=== PATIENT | male | born 1980 | race Caucasian/White ===

== ENCOUNTER 2021-07-15 04:55 | Emergency (ER) | payer BC ==
[2021-07-15] MEDS ORDERED: Sodium Chloride 0.9% 2.5 ML Syringe FLUSH PRN (05:30)
[2021-07-15] MEDS ORDERED: Sodium Chloride 0.9% 10 ML Syringe FLUSH PRN (05:30)
--- NOTE | 2021-07-15 05:36 | EDM.PDOC ---
<Boubacar Rincon - Last Filed: 07/15/21 05:31> ED HPI GENERAL MEDICAL PROBLEM - General Chief Complaint: General Stated Complaint: COVID POSITIVE; TROUBLE BREATHING Time Seen by Provider: 07/15/21 05:29 - History of Present Illness INITIAL COMMENTS - FREE TEXT/NARRATIVE: HISTORY AND PHYSICAL: History of present illness: This is a healthy 40-year-old gentleman with no significant history of hypertension, diabetes, liver, lung, kidney problems who was recently diagnosed with coronavirus on Tuesday (2 days ago )after having symptoms since Tuesday(7 days ago). Patient reports that his diagnosis was made over in the clinic here at [facility]. Patient reports he is had tactile fevers, nausea, yellow productive cough, posttussive emesis, no diarrhea, no dysuria, no frequency/urgency/hematuria. Patient reports he has been tolerating p.o. solids and liquids fairly well but less than usual. Patient denies any abdominal pain. Patient reports chest discomfort with inspiration and cough. Patient reports that he does drink alcohol occasionally. Patient has not had his Covid vaccination as of yet. Patient presents ER today secondary to increasing shortness of breath over the last 24 hours with increased wheezing. Patient denies any calf tenderness. Patient has any history of DVT/PE. After his diagnosis at the clinic, he reports that he was given a prescription for Augmentin, prednisone, Zofran. Review of systems: As per history of present illness and below otherwise all systems reviewed and negative. Past medical history: As per history of present illness and as reviewed below otherwise noncontributory. Surgical history: As per history of present illness and as reviewed below otherwise noncontributory. Social history: No reported history of drug abuse. Family history: As per history of present illness and as reviewed below otherwise noncontributory. Physical exam: This patient was seen and evaluated during the 2019 SARS-CoV-2 novel coronavirus pandemic period. Community viral transmission is ongoing at time of this encounter and the emergency department is operating under pandemic response procedures. Constitutional: Patient is oriented to person, place, and time. Appears well- developed and well-nourished. No distress. HEENT: Moist mucous membranes Head: Normocephalic and atraumatic Eyes: Right eye exhibits no discharge. Left eye exhibits no discharge. No scleral icterus Neck: Normal range of motion. No tracheal deviation present. Cardiovascular: Normal rate and regular rhythm. Pulmonary: Effort normal, no respiratory distress. Abdominal: No distention Musculoskeletal: Normal range of motion Neurologic: Alert and oriented to person, place and time. Skin: [place], warm and dry. Psychiatric: Normal mood and affect. Behavior is normal. Judgment and thought content normal. Nursing note and vital signs have been reviewed Diagnostics: CBC, CMP, troponin, CTA EKG July 15, 2021 5:09 AM EKG: As interpreted by ER physician: Sergey: Nonspecific ST-T wave abnormalities Normal axis No evidence of ST elevation ND Normal sinus rhythm heart rate of 91 Therapeutics: [] Assessment and plan: This is a 40-year-old gentleman with a recent diagnosis of coronavirus after having symptom onset approximately 7 days ago who presents to the ER today secondary to increasing shortness of breath over the last 24 to 48 hours with audible wheezing at home. Patient has not had his coronavirus vaccination as of yet. Patient was started on Augmentin, prednisone and Zofran by his primary care doctor after his diagnosis. Patient has not received Regeneron therapy. Patient's only criteria by our list is a BMI greater than 25, male, no recent vaccination. Patient will have a CBC, CMP, troponin to rule out other causes of shortness of breath. Patient will have a CTA of his chest to rule out PE given his recent history of Covid and his chest pain and shortness of breath. Definitive disposition and diagnosis as appropriate pending reevaluation and review of above. Generalized Pain Score (Numeric/FACES): 8 - Related Data Allergies Allergy/AdvReac Type Severity Reaction Status Date / Time No Known Allergies Allergy Verified 07/15/21 05:28 Home Meds: Home Meds Amoxicillin/Potassium Clav [Amox Tr-K Clv 875-125 mg Tab] 1 each PO ASDIRECTED 07/15/21 [History] Ondansetron [Zofran ODT] 4 mg PO ASDIRECTED 07/15/21 [History] predniSONE [Prednisone] 10 mg PO DAILY 07/15/21 [History] Past Medical History - Past Health History Medical/Surgical History: Denies Medical/Surgical History ED ROS GENERAL - Review of Systems Review Of Systems: See Below ED EXAM, GENERAL - Physical Exam Exam: See Below Departure - Departure Disposition: Home, Self-Care 01 Clinical Impression: Dyspnea, Pneumonia due to COVID-19 virus - Discharge Information Instructions: COVID-19 Frequently Asked Questions, Shortness of Breath, Adult, [id number], COVID-19 Vaccine Information, 10 Things You Can Do to Manage Your COVID-19 Symptoms at Home - [facility] (04/10/2021), COVID-19: Quarantine vs. Isolation - [facility] (09/11/2020), COVID-19: What to Do If You Are Sick- [facility] (12/10/2020) Referrals: PCP,None [Primary Care Provider] - Forms: ED Department Discharge Additional Instructions: It appears you meet some criteria for monoclonal antibody administration. Depending on availability this may be administered in the paperwork has been filled out. The people at the clinic that administer the antibiotic will be in touch with you. If you do not get it this week then you will be over the time limit because if you have symptoms 10days that is the limit on benefit from monoclonal antibodies. [facility] - Primary Care [address] [place] [address] [place] [address] The following information is given to patients seen in the emergency department who are being discharged to home. This information is to outline your options for follow-up care. We provide all patients seen in our emergency department with a follow-up referral. The need for follow-up, as well as the timing and circumstances, are variable depending upon the specifics of your emergency department visit. If you don't have a primary care physician on staff, we will provide you with a referral. We always advise you to contact your personal physician following an emergency department visit to inform them of the circumstance of the visit and for follow-up with them and/or the need for any referrals to a consulting specialist. The emergency department will also refer you to a specialist when appropriate. This referral assures that you have the opportunity for follow-up care with a specialist. All of these measure are taken in an effort to provide you with optimal care, which includes your follow-up. Under all circumstances we always encourage you to contact your private physician who remains a resource for coordinating your care. When calling for follow-up care, please make the office aware that this follow-up is from your recent emergency room visit. If for any reason you are refused follow-up, please contact the [facility] Emergency Department at and asked to speak to the emergency department charge nurse. Sepsis Event Note (ED) - Evaluation Sepsis Screening Result: No Definite Risk <Az Reid - Last Filed: 07/15/21 07:28> Course - Vital Signs Text/Narrative:: 6:32 AM I accepted this patient in signout from my partner at 6 AM. The patient is in no acute distress and went by wheelchair to CT to make sure he does not have a pulmonary embolus. Last Recorded V/S: Last Vital Signs Temp 36.9 C 07/15/21 05:15 Pulse 99 07/15/21 05:15 Resp 18 07/15/21 05:15 BP 121/78 07/15/21 05:15 Pulse Ox 91 L 07/15/21 05:15 - Orders/Labs/Meds Orders: Active Orders 24 hr Category Date Time Status Sodium Chloride 0.9% [Saline Flush] Med 07/15/21 05:30 Active 10 ml FLUSH ASDIRECTED PRN Sodium Chloride 0.9% [Saline Flush] Med 07/15/21 05:30 Active 2.5 ml FLUSH ASDIRECTED PRN Saline Lock Insert [OM.PC] Stat Oth 07/15/21 05:30 Ordered Medication Orders Sodium Chloride (Sodium Chloride 0.9% 10 Ml Syringe) 10 ml FLUSH ASDIRECTED PRN PRN Reason: Keep Vein Open Last Admin: 07/15/21 05:38 Dose: 10 ml Documented by: LUIGI Sodium Chloride (Sodium Chloride 0.9% 2.5 Ml Syringe) 2.5 ml FLUSH ASDIRECTED PRN PRN Reason: Keep Vein Open Last Admin: 07/15/21 05:38 Dose: 2.5 ml Documented by: LUIGI Labs: Laboratory Tests 07/15/21 07/15/21 Range/Units 05:20 05:20 WBC 5.63 (4.0-11.0) K/uL RBC 4.90 (4.50-5.90) M/uL Hgb 14.5 (13.0-17.0) g/dL Hct 42.4 (38.0-50.0) % MCV 86.5 (80.0-98.0) fL MCH 29.6 (27.0-32.0) pg MCHC 34.2 (31.0-37.0) g/dL RDW Std Deviation 41.1 (28.0-62.0) fl RDW Coeff of Stevan 13 (11.0-15.0) % Plt Count 192 (150-400) K/uL MPV 10.90 (7.40-12.00) fL Neut % (Auto) 76.9 (48.0-80.0) % Lymph % (Auto) 17.8 (16.0-40.0) % [place] % (Auto) 5.3 (0.0-15.0) % Eos % (Auto) 0.0 (0.0-7.0) % Baso % (Auto) 0.0 (0.0-1.5) % Neut # (Auto) 4.3 (1.4-5.7) K/uL Lymph # (Auto) 1.0 (0.6-2.4) K/uL [place] # (Auto) 0.3 (0.0-0.8) K/uL Eos # (Auto) 0.0 (0.0-0.7) K/uL Baso # (Auto) 0.0 (0.0-0.1) K/uL Nucleated RBC % 0.0 /100WBC Nucleated RBCs # 0 K/uL Sodium 143 (136-148) mmol/L Potassium 4.6 (3.5-5.1) mmol/L Chloride 104 (98-107) mmol/L Carbon Dioxide 28.3 (21.0-32.0) mmol/L BUN 24 H (7.0-18.0) mg/dL Creatinine 0.9 (0.8-1.3) mg/dL Est Cr Clr Drug Dosing 118.56 mL/min Estimated GFR (MDRD) > 60.0 ml/min Glucose 112 H (74-106) mg/dL Calcium 8.4 L (8.5-10.1) mg/dL Total Bilirubin 0.4 (0.2-1.0) mg/dL AST 52 H (15-37) IU/L ALT 100 H (14-63) IU/L Alkaline Phosphatase 68 (46-116) U/L Troponin I < 0.050 (0.000-0.056) ng/mL Total Protein 7.0 (6.4-8.2) g/dL Albumin 3.3 L (3.4-5.0) g/dL Globulin 3.7 (2.6-4.0) g/dL Albumin/Globulin Ratio 0.9 (0.9-1.6) Meds: Medications Generic Name Dose Route Start Last Admin Trade Name Freq PRN Reason Stop Dose Admin Sodium Chloride 10 ml 07/15/21 05:30 07/15/21 05:38 Sodium Chloride 0.9% 10 Ml Syringe FLUSH 10 ml ASDIRECTED PRN Administration Keep Vein Open Sodium Chloride 2.5 ml 07/15/21 05:30 07/15/21 05:38 Sodium Chloride 0.9% 2.5 Ml Syringe FLUSH 2.5 ml ASDIRECTED PRN Administration Keep Vein Open Discontinued Medications Generic Name Dose Route Start Last Admin Trade Name Freq PRN Reason Stop Dose Admin Iopamidol 100 ml 07/15/21 06:41 07/15/21 06:41 Iopamidol 755 Mg/Ml 500 Ml Multipack Bottle IVPUSH 07/15/21 06:42 100 ml ONETIME STA Administration - Re-Assessments/Exams Free Text/Narrative Re-Assessment/Exam: 07/15/21 07:27 Patient never dropped his sats below 90% in the emergency room. He has CT showing bilateral pneumonia with COVID-19 and no pulmonary embolus troponin is negative more than 12 hours after onset of worsening symptoms and dyspnea. Patient is discharged comfortably on his own with COVID-19 instructions and monoclonal antibody papers filled out because he is over the BMI that would make him a candidate if we have a sufficient supply in time for him to meet the 10- day real. Departure - Departure Time of Disposition: 07:15 Condition: Good Sepsis Event Note (ED) - Focused Exam Vital Signs: Vital Signs Temp Pulse Resp BP Pulse Ox 07/15/21 05:15 36.9 C 99 18 121/78 91 L
[2021-07-15 06:10] LABS: BLOOD UREA NITROGEN,BUN 24 mg/dL (7.0-18.0); CARBON DIOXIDE,CO2 28.3 mmol/L (21.0-32.0); CHLORIDE,CL 104 mmol/L (98-107); GLUCOSE RANDOM 112 mg/dL (74-106); POTASSIUM,K 4.6 mmol/L (3.5-5.1); SODIUM,NA 143 mmol/L (136-148)
[2021-07-15] MEDS ORDERED: Iopamidol 755 MG/ML 500 ML Multipack Bottle IVPUSH STA (06:41)
--- NOTE | 2021-07-15 07:11 | CT ---
INDICATION: COVID-19; shortness of breath. COMPARISON: None. TECHNIQUE: CT chest with intravenous contrast; coronal and sagittal reformats. FINDINGS: No CT evidence of pulmonary thromboembolism. No evidence of aortic aneurysm or dissection. Normal size cardiac silhouette without any evidence of pericardial effusion. Extensive patchy areas of alveolar consolidation throughout both lungs diffuse diagnostic of COVID-[address] through the upper abdomen is unremarkable. IMPRESSION: 1. No CT evidence of pulmonary thromboembolism. 2. Extensive COVID-19 pneumonia bilateral. Please note that all CT scans at this facility use dose modulation, iterative reconstruction, and/or weight-based dosing when appropriate to reduce radiation dose to as low as reasonably achievable. Dictated by Lizzy Healy MD @ 07/15/2021 7:10:23 AM (Electronically Signed)
[2021-07-15 07:46] VITALS: BP 131/74; PULSE 92
== END 2021-07-15 07:37 | disposition home or self-care (01) ==
LOC: MW.ED 04:55
DX: U07.1 COVID-19 (principal); J12.82 Pneumonia due to coronavirus disease 2019
CPT/HCPCS: 36415; 71275; 80053; 84484; 85025; 93005; 99285; Q9967

== ENCOUNTER 2021-07-27 08:10 | Emergency (ER) | payer BC ==
[2021-07-27] MEDS ORDERED: Sodium Chloride 0.9% 10 ML Syringe FLUSH PRN (08:57)
[2021-07-27] MEDS ORDERED: Sodium Chloride 0.9% 2.5 ML Syringe FLUSH PRN (08:57)
--- NOTE | 2021-07-27 08:59 | EDM.PDOC ---
ED HPI GENERAL MEDICAL PROBLEM - General Chief Complaint: Respiratory Problem Stated Complaint: CHEST PAIN W/DEEP BREATHING/ SPITTING UP BLOOD Time Seen by Provider: 07/27/21 08:26 - History of Present Illness INITIAL COMMENTS - FREE TEXT/NARRATIVE: Previously well 40-year-old male who was diagnosed with Covid on July 13 is presenting with chest pain. Patient had significant cough and difficulty breathing and other typical Covid symptoms for some time but the last 5 days is felt quite well. Last night he had a sudden and significant coughing fit followed by small-volume hemoptysis he now has pleuritic anterior chest pain. No shortness of breath no syncope or near syncope no nausea or vomiting no lightheadedness or dizziness. Symptoms worsen with deep breaths no alleviating factors radiation or other associated symptoms. Treatments LICENSED MORTICIAN: Reports: Acetaminophen, NSAIDS, Other (see below) Other Treatments LICENSED MORTICIAN: Advil and Tylenol at 0745 this AM - Related Data Allergies Allergy/AdvReac Type Severity Reaction Status Date / Time No Known Allergies Allergy Verified 07/27/21 08:31 Home Meds: Home Meds . [No Known Home Meds] 07/27/21 [History] Past Medical History - Past Health History Medical/Surgical History: Denies Medical/Surgical History HEENT History: Reports: None Cardiovascular History: Reports: None Respiratory History: Reports: None Gastrointestinal History: Reports: None Genitourinary History: Reports: None Musculoskeletal History: Reports: None Neurological History: Reports: None Psychiatric History: Reports: None Endocrine/Metabolic History: Reports: None Hematologic History: Reports: None Immunologic History: Reports: None Oncologic (Cancer) History: Reports: None Dermatologic History: Reports: None - Infectious Disease History Infectious Disease History: Reports: Chicken Pox, Novel Coronavirus - Past Surgical History Head Surgeries/Procedures: Reports: None Dermatological Surgical History: Reports: Other (See Below) Social & Family History - Family History Family Medical History: No Pertinent Family History - Tobacco Use Tobacco Use Status *Q: Former Tobacco User Used Tobacco, but Quit: Yes Month/Year Tobacco Last Used: 1999 - Caffeine Use Caffeine Use: Reports: Coffee, Energy Drinks - Recreational Drug Use Recreational Drug Use: No ED ROS GENERAL - Review of Systems Review Of Systems: See Below Free Text/Narrative/Comment: General: No fever. Skin: No rash. Eyes: No vision problems. ENT: No sore throat. Neck: No neck stiffness. Respiratory: No shortness of breath. Cardiac: Per HPI Gastrointestinal: No nausea, vomiting or abdominal pain. Urinary: No dysuria. Musculoskeletal: No myalgias/arthralgias. Neurologic: No headache. ED EXAM, GENERAL - Physical Exam Exam: See Below Free Text/Narrative:: General Appearance: No acute distress, appears comfortable Skin: No rash HEENT: Normocephalic/atraumatic, sclera anicteric, mucous membranes moist Neck: Normal range of motion Chest and Lungs: Bilateral breath sounds, clear to auscultation Cardiovascular: Regular rate and rhythm Abdomen: Soft, non-tender Back: Normal Musculoskeletal: No edema or tenderness Neurologic: Awake, alert, no obvious deficits, moving all extremities Psychiatric: Appropriate, cooperative #1 Interpretation EKG Date: 07/27/21 Time: 09:14 EKG Interpretation Comments: Normal sinus rhythm rate of 69 patient does have an RSR prime which could represent right ventricular conduction delay or RVH. No acute ischemia is noted. Course - Vital Signs Last Recorded V/S: Last Vital Signs Temp 96.4 F L 07/27/21 08:24 Pulse 72 07/27/21 11:04 Resp 18 07/27/21 11:04 BP 112/76 07/27/21 11:04 Pulse Ox 97 07/27/21 11:04 - Orders/Labs/Meds Orders: Active Orders 24 hr Category Date Time Status Sodium Chloride 0.9% [Saline Flush] Med 07/27/21 08:57 Active 10 ml FLUSH ASDIRECTED PRN Sodium Chloride 0.9% [Saline Flush] Med 07/27/21 08:57 Active 2.5 ml FLUSH ASDIRECTED PRN Saline Lock Insert [OM.PC] Stat Oth 07/27/21 08:57 Ordered Medication Orders Sodium Chloride (Sodium Chloride 0.9% 10 Ml Syringe) 10 ml FLUSH ASDIRECTED PRN PRN Reason: Keep Vein Open Last Admin: 07/27/21 09:23 Dose: 10 ml Documented by: [id number] Sodium Chloride (Sodium Chloride 0.9% 2.5 Ml Syringe) 2.5 ml FLUSH ASDIRECTED PRN PRN Reason: Keep Vein Open Last Admin: 07/27/21 09:23 Dose: 2.5 ml Documented by: PROMISE Labs: Laboratory Tests 07/27/21 07/27/21 07/27/21 Range/Units 09:01 09:01 09:01 WBC 6.66 (4.0-11.0) K/uL RBC 4.98 (4.50-5.90) M/uL Hgb 14.8 (13.0-17.0) g/dL Hct 43.9 (38.0-50.0) % MCV 88.2 (80.0-98.0) fL MCH 29.7 (27.0-32.0) pg MCHC 33.7 (31.0-37.0) g/dL RDW Std Deviation 41.1 (28.0-62.0) fl RDW Coeff of Stevan 13 (11.0-15.0) % Plt Count 528 H (150-400) K/uL MPV 9.90 (7.40-12.00) fL Neut % (Auto) 59.9 (48.0-80.0) % Lymph % (Auto) 28.7 (16.0-40.0) % [place] % (Auto) 9.8 (0.0-15.0) % Eos % (Auto) 1.1 (0.0-7.0) % Baso % (Auto) 0.5 (0.0-1.5) % Neut # (Auto) 4.0 (1.4-5.7) K/uL Lymph # (Auto) 1.9 (0.6-2.4) K/uL [place] # (Auto) 0.7 (0.0-0.8) K/uL Eos # (Auto) 0.1 (0.0-0.7) K/uL Baso # (Auto) 0.0 (0.0-0.1) K/uL Nucleated RBC % 0.0 /100WBC Nucleated RBCs # 0 K/uL D-Dimer, Quantitative 1.29 H (0.0-0.50) mg/L FEU Sodium 138 (136-148) mmol/L Potassium 4.9 (3.5-5.1) mmol/L Chloride 100 (98-107) mmol/L Carbon Dioxide 30.8 (21.0-32.0) mmol/L BUN 12 (7.0-18.0) mg/dL Creatinine 1.0 (0.8-1.3) mg/dL Est Cr Clr Drug Dosing 106.70 mL/min Estimated GFR (MDRD) > 60.0 ml/min Glucose 104 (74-106) mg/dL Calcium 9.3 (8.5-10.1) mg/dL Total Bilirubin 0.3 (0.2-1.0) mg/dL AST 40 H (15-37) IU/L ALT 134 H (14-63) IU/L Alkaline Phosphatase 79 (46-116) U/L Troponin I < 0.050 (0.000-0.056) ng/mL Total Protein 8.1 (6.4-8.2) g/dL Albumin 3.3 L (3.4-5.0) g/dL Globulin 4.8 H (2.6-4.0) g/dL Albumin/Globulin Ratio 0.7 L (0.9-1.6) Lipase 130 (73-393) U/L Meds: Medications Generic Name Dose Route Start Last Admin Trade Name Freq PRN Reason Stop Dose Admin Sodium Chloride 10 ml 07/27/21 08:57 07/27/21 09:23 Sodium Chloride 0.9% 10 Ml Syringe FLUSH 10 ml ASDIRECTED PRN Administration Keep Vein Open Sodium Chloride 2.5 ml 07/27/21 08:57 07/27/21 09:23 Sodium Chloride 0.9% 2.5 Ml Syringe FLUSH 2.5 ml ASDIRECTED PRN Administration Keep Vein Open Discontinued Medications Generic Name Dose Route Start Last Admin Trade Name Freq PRN Reason Stop Dose Admin Iopamidol 100 ml 07/27/21 12:03 07/27/21 12:03 Iopamidol 755 Mg/Ml 500 Ml Multipack Bottle IVPUSH 07/27/21 12:04 100 ml ONETIME STA Administration Departure - Departure Time of Disposition: 12:55 Disposition: Home, Self-Care 01 Condition: Good Clinical Impression: Hemoptysis - Discharge Information *PRESCRIPTION DRUG MONITORING PROGRAM REVIEWED*: Not Applicable *COPY OF PRESCRIPTION DRUG MONITORING REPORT IN PATIENT WINIFRED: Not Applicable Instructions: Hemoptysis, [id number] Forms: ED Department Discharge Additional Instructions: Your hemoptysis (coughing up blood) is most likely due to the ongoing inflammation in your lungs from your recent data with COVID-19. [id number]-[id number] anti-inflammatories such as Advil ibuprofen and Aleve will treat inflammation generally may help your lungs as well. Over time as you get further from the acute infection your lungs will start to heal and you should gradually feel better. If your symptoms worsen or you have any other new symptoms that concern you please call your doctor or return to the ER. If you do not have a primary care doctor you can follow-up at one of the primary care clinics listed below. [facility] - Primary Care [address] [place] [id number] [facility] [address] [place] [id number] The following information is given to patients seen in the emergency department who are being discharged to home. This information is to outline your options for follow-up care. We provide all patients seen in our emergency department with a follow-up referral. The need for follow-up, as well as the timing and circumstances, are variable depending upon the specifics of your emergency department visit. If you don't have a primary care physician on staff, we will provide you with a referral. We always advise you to contact your personal physician following an emergency department visit to inform them of the circumstance of the visit and for follow-up with them and/or the need for any referrals to a consulting specialist. The emergency department will also refer you to a specialist when appropriate. This referral assures that you have the opportunity for follow-up care with a specialist. All of these measure are taken in an effort to provide you with optimal care, which includes your follow-up. Under all circumstances we always encourage you to contact your private physician who remains a resource for coordinating your care. When calling for follow-up care, please make the office aware that this follow-up is from your recent emergency room visit. If for any reason you are refused follow-up, please contact the [facility] Emergency Department at and asked to speak to the emergency department charge nurse. Sepsis Event Note (ED) - Evaluation Sepsis Screening Result: No Definite Risk - Focused Exam Vital Signs: Vital Signs Temp Pulse Resp BP Pulse Ox 07/27/21 11:04 72 18 112/76 97 07/27/21 10:23 72 18 106/67 97 07/27/21 08:24 96.4 F L 88 16 124/83 98 - My Orders Last 24 Hours: My Active Orders 07/27/21 08:57 Sodium Chloride 0.9% [Saline Flush] 10 ml FLUSH ASDIRECTED PRN Sodium Chloride 0.9% [Saline Flush] 2.5 ml FLUSH ASDIRECTED PRN Saline Lock Insert [OM.PC] Stat - Assessment/Plan Last 24 Hours: My Active Orders 07/27/21 08:57 Sodium Chloride 0.9% [Saline Flush] 10 ml FLUSH ASDIRECTED PRN Sodium Chloride 0.9% [Saline Flush] 2.5 ml FLUSH ASDIRECTED PRN Saline Lock Insert [OM.PC] Stat Assessment:: 40-year-old male presenting with cough and small-volume hemoptysis with recent Covid infection physical exam normal at this time ACS felt very unlikely pericarditis consideration again felt unlikely but EKG troponin pending. PE needs to be considered but no tachycardia or hypoxia secondary pneumonia needs to be considered but acute onset felt less likely. Could simply be residual Covid related lung irritation but CBC, CMP, D-dimer ordered as well and will reassess. Chest x-ray pending as well. Labs unremarkable with exception of positive D-dimer so CT pulmonary angiography has been added. Chest x-ray consistent with his recent Covid. 1255: CT with extensive Covid pneumonia related changes but negative for PE. Patient's vital signs remain normal he continues to have normal work of breathing. I suspect Covid related pulmonary inflammation led to a small volume hemoptysis. Patient felt stable for discharge.
[2021-07-27 09:45] LABS: BLOOD UREA NITROGEN,BUN 12 mg/dL (7.0-18.0); CARBON DIOXIDE,CO2 30.8 mmol/L (21.0-32.0); CHLORIDE,CL 100 mmol/L (98-107); GLUCOSE RANDOM 104 mg/dL (74-106); LIPASE 130 U/L (73-393); POTASSIUM,K 4.9 mmol/L (3.5-5.1); SODIUM,NA 138 mmol/L (136-148)
--- NOTE | 2021-07-27 09:50 | CR ---
INDICATION: Chest pain, recent COVID. TECHNIQUE: Chest 2 views. COMPARISON: CT chest 07/15/2021. FINDINGS: There are persistent bilateral pulmonary infiltrates, greater in the right lung. No pleural effusion or pneumothorax. Heart size upper limits of normal. The bones are unremarkable. IMPRESSION: Persistent bilateral pulmonary infiltrates compatible with known COVID pneumonia. Dictated by Neema Esteves MD @ 07/27/2021 9:48:55 AM (Electronically Signed)
[2021-07-27] MEDS ORDERED: Iopamidol 755 MG/ML 500 ML Multipack Bottle IVPUSH STA (12:03)
--- NOTE | 2021-07-27 12:51 | CT ---
INDICATION: Hemoptysis. Pleuritic chest pain. Recent COVID infection. Rule out pulmonary embolism. TECHNIQUE: Volumetric helical scanning of the thorax was performed during infusion of 100 cc of Isovue 370 contrast material IV, timing optimized for pulmonary arterial opacification. Coronal and sagittal reconstructions were obtained. COMPARISON: Chest CT of 07/15/2021. FINDINGS: The images are of acceptable quality and demonstrate uniform vascular enhancement within the pulmonary arteries. No pulmonary arterial filling defect is identified. The heart size is normal. Patchy bilateral pneumonias have increased since the prior study. The airways and pleural spaces are clear. There is mild mediastinal lymphadenopathy which is grossly stable. Borderline hilar lymphadenopathy is now present bilaterally. Images of the upper abdomen are unremarkable. IMPRESSION: 1. Negative for pulmonary embolism. 2. Patchy bilateral pneumonias, increased since the previous examination. 3. Grossly unchanged mild mediastinal lymphadenopathy new borderline hilar lymphadenopathy. Patch that Please note that all CT scans at this facility use dose modulation, iterative reconstruction, and/or weight-based dosing when appropriate to reduce radiation dose to as low as reasonably achievable. Dictated by Bryn Anaya MD @ 07/27/2021 12:50:38 PM (Electronically Signed)
[2021-07-27 13:02] VITALS: BP 105/72; PULSE 75
== END 2021-07-27 13:06 | disposition home or self-care (01) ==
LOC: MW.ED 08:10
DX: R04.2 Hemoptysis (principal); Z87.891 Personal history of nicotine dependence
CPT/HCPCS: 36415; 71046; 71275; 80053; 83690; 84484; 85025; 85379; 93005; 99285; Q9967